=== PATIENT | male | born 1985 | race Caucasian/White ===

== ENCOUNTER 2020-12-14 14:11 | Emergency (ER) | payer BC, OTHER ==
[2020-12-14] MEDS ORDERED: Diphtheria,Pertussis(Acell),Tetanus Vaccine 0.5 ML Syringe IM ONE (16:58)
[2020-12-14] MEDS ORDERED: Bacitracin Oint 1 GM U/D Packet TOP ONE (17:04)
[2020-12-14] MEDS ORDERED: Lidocaine 1% 30 ML SDV INJECT ONE (17:04)
--- NOTE | 2020-12-14 17:13 | EDM.PDOC ---
<DgOscarLuz ElenajohannaTylerMayra - Last Filed: 12/14/20 18:12> ED HPI GENERAL MEDICAL PROBLEM - General Chief Complaint: Laceration Stated Complaint: FINGER LACERAION Time Seen by Provider: 12/14/20 17:02 Source of Information: Reports: Patient History Limitations: Reports: No Limitations - History of Present Illness INITIAL COMMENTS - FREE TEXT/NARRATIVE: Patient is a 35 y.o. male who presents to the ED with lacerations to his left hand, 2nd and 3rd digits near the PIP joints. 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 He states the knife was new and was a straight blade. He states he his able to fully flex and extend both digits and denies paraesthesias. He denies any fever, chills, body aches, or bowel changes. He states his last tetanus was over 5 years ago. Onset: Today Location: Reports: Upper Extremity, Left (laceration to the right hand-2nd and 3rd digits ) Improves with: Reports: None Worsens with: Reports: None Associated Symptoms: Reports: No Other Symptoms left index finger Pain Score (Numeric/FACES): 5 - Related Data Allergies Allergy/AdvReac Type Severity Reaction Status Date / Time No Known Allergies Allergy Verified 12/14/20 15:29 Home Meds: Home Meds . [No Known Home Meds] 12/14/20 [History] Past Medical History HEENT History: Reports: None Cardiovascular History: Reports: None Respiratory History: Reports: None Gastrointestinal History: Reports: None Genitourinary History: Reports: None Musculoskeletal History: Reports: None Neurological History: Reports: None Psychiatric History: Reports: None Endocrine/Metabolic History: Reports: None Hematologic History: Reports: None Immunologic History: Reports: None Oncologic (Cancer) History: Reports: None Dermatologic History: Reports: None - Infectious Disease History Infectious Disease History: Reports: None - Past Surgical History HEENT Surgical History: Reports: None GI Surgical History: Reports: None Social & Family History - Family History Family Medical History: No Pertinent Family History - Tobacco Use Tobacco Use Status *Q: Current Every Day Tobacco User Years of Tobacco use: 10 Packs/Tins Daily: 0.5 - Caffeine Use Caffeine Use: Reports: Coffee - Recreational Drug Use Recreational Drug Use: No ED ROS GENERAL - Review of Systems Review Of Systems: See Below Constitutional: Reports: No Symptoms Respiratory: Reports: No Symptoms Cardiovascular: Reports: No Symptoms GI/Abdominal: Reports: No Symptoms Musculoskeletal: Reports: Hand Pain (of left hand associated with laceration on 2nd and 3rd digits ) Skin: Reports: Other (laceration of the 2nd and 3rd digits on the left hand ) Neurological: Reports: No Symptoms Psychiatric: Reports: No Symptoms Hematologic/Lymphatic: Reports: No Symptoms ED EXAM, SKIN/RASH Exam: See Below Exam Limited By: No Limitations General Appearance: Alert, WD/WN, No Apparent Distress Respiratory/Chest: No Respiratory Distress, Lungs Clear, Normal Breath Sounds, No Accessory Muscle Use, Chest Non-Tender Cardiovascular: Normal Peripheral Pulses, Regular Rate, Rhythm, No Edema, No Gallop, No JVD, No Murmur, No Rub Extremities: Normal Range of Motion (full flexion and extension appreciated of the 2nd and 3rd digits of the right hand ), Non-Tender, No Pedal Edema, Normal Capillary Refill Neurological: Alert, Oriented, CN II-XII Intact, Normal Cognition, Normal Gait, Normal Reflexes, No Motor/Sensory Deficits Skin: Warm, Normal Color, No Rash, Other (laceration on the left hand 2nd digit approximately 2cm in length near the PIP joint; laceration of the left hand 3rd digit approximately 0.8cm in length. Bleeding well-controlled. ) Location, Skin: Upper Extremity, Left (laceration left 2nd and 3rd digit ) Lymphatic: No Adenopathy ED SKIN PROCEDURES - Laceration/Wound Repair Left Digit - 2nd (Index) Appearance: Subcutaneous Distal NVT: Neuro & Vascular Intact Anesthetic Type: Local Local Anesthesia - Lidocaine (Xylocaine): 1% Plain Local Anesthetic Volume: 4cc Skin Prep: Chlorhexidine (Hibiciens) Exploration/Debridement/Repair: Wound Explored, In a Bloodless Field, No Foreign Material Found Closed with: Sutures Lac/Wound length In cm: 2 Suture Size: 4-0 Suture Type: Prolene, Interrupted, Simple Sterile Dressing Applied: Nurse Tetanus Status Addressed: Yes Complications: No Progress/Comments: Patient tolerated procedure well. No post-procedure complications appreciated. Left Digit - 3rd (Middle) Appearance: Subcutaneous Distal NVT: Neuro & Vascular Intact Anesthetic Type: Local Local Anesthesia - Lidocaine (Xylocaine): 1% Plain Local Anesthetic Volume: 1cc Skin Prep: Chlorhexidine (Hibiciens) Exploration/Debridement/Repair: Wound Explored, In a Bloodless Field, No Foreign Material Found Closed with: Sutures Lac/Wound length In cm: 0.8 Suture Size: 4-0 Suture Type: Prolene, Interrupted, Simple Sterile Dressing Applied: Nurse Tetanus Status Addressed: Yes Complications: No Departure - Departure Time of Disposition: 18:08 Disposition: Home, Self-Care 01 Condition: Good Clinical Impression: Laceration - Discharge Information *PRESCRIPTION DRUG MONITORING PROGRAM REVIEWED*: Not Applicable *COPY OF PRESCRIPTION DRUG MONITORING REPORT IN PATIENT ROSANNE: Not Applicable Instructions: Laceration Care, Adult Forms: ED Department Discharge Care Plan Goals: -Patient should keep the area clean and dry. Keep lacerations covered for the 2- 3 of days if returning to work. -Monitor area for signs of infection such as redness, swelling, purulent drainage, fever or chills. If symptoms do develop follow up with Primary care facility or with the ED. -Follow up with primary care in 7-10 days to have sutures removed. 10 sutures on the 2nd digit and 4 sutures on the 3rd digit. Sepsis Event Note (ED) - Evaluation Sepsis Screening Result: No Definite Risk <Jb Kruger - Last Filed: 12/15/20 07:09> Course - Vital Signs Last Recorded V/S: Last Vital Signs Temp 36.6 C 12/14/20 15:24 Pulse 104 H 12/14/20 15:24 Resp 16 12/14/20 15:24 BP 140/95 H 12/14/20 15:24 Pulse Ox 98 12/14/20 15:24 - Orders/Labs/Meds Meds: Medications Discontinued Medications Generic Name Dose Route Start Last Admin Trade Name Lalito PRN Reason Stop Dose Admin Bacitracin 1 dose 12/14/20 17:04 12/14/20 17:09 Bacitracin Oint 1 Gm U/D Packet TOP 12/14/20 17:05 1 dose ONETIME ONE Administration Diphtheria/Tetanus/Acell Pertussis 0.5 ml 12/14/20 16:58 12/14/20 17:10 Diphtheria,Pertussis(Acell),Tetanus Vaccine 0.5 Ml Syringe IM 12/14/20 16:59 0.5 ml .ONCE ONE Administration Lidocaine HCl 30 ml 12/14/20 17:04 12/14/20 17:09 Lidocaine 1% 30 Ml Sdv INJECT 12/14/20 17:05 5 ml ONETIME ONE Administration - Re-Assessments/Exams Free Text/Narrative Re-Assessment/Exam: 12/15/20 07:09 I have examined the patient. I have discussed findings and treatment plan with the PA student. I agree with the assessment and plan in the following students note.
== END 2020-12-14 18:15 | disposition home or self-care (01) ==
LOC: DL.ED 14:11
DX: S61.211A Laceration without foreign body of left index finger without damage to nail, initial encounter (principal); S61.213A Laceration without foreign body of left middle finger without damage to nail, initial encounter; Z23 Encounter for immunization; Z72.0 Tobacco use; W26.0XXA Contact with knife, initial encounter; Y92.89 Other specified places as the place of occurrence of the external cause; Y99.0 Civilian activity done for income or pay
CPT/HCPCS: 12001; 12002; 90471; 90715; 99282-25; 99283